=== PATIENT | male | born 1935 | race Caucasian/White ===

== ENCOUNTER 2017-12-23 14:18 | Emergency (ER) | payer BC ==
[~2017-12-23] VITALS: Ht 172.7 cm; Wt 61.2 kg
[~2017-12-23 14:18] MED LIST: ASPI81TA31 PO; CLOP75TA15 PO; METO5AMP3 PO; [UNRECOGNIZED DRUG - CODE] PO
--- NOTE | 2017-12-23 14:20 | NUR ---
Pt ambulatory to room 1b, c/o chest pressure since last night, family with pt. EKG done and handed to .
[2017-12-23] MEDS ORDERED: ASPIRIN 325 MG TABLET ONE (14:28)
[2017-12-23] MEDS ORDERED: NITROGLYCERIN 0.4 MG/TAB BOTTLE SL ONE ×2 (14:28→14:30)
[2017-12-23] MEDS ORDERED: ASPIRIN 325 MG TABLET PO ONE (14:30)
[2017-12-23] MEDS ORDERED: NITROGLYCERIN IV 250 ML ONE (14:40)
[2017-12-23] MEDS ORDERED: NITROGLYCERIN IV 250 ML IV PRN (14:45)
[2017-12-23 14:46] LABS: BASOPHILS # (AUTO) 0.1 K/uL (0.0-8.0); BASOPHILS % (AUTO) 0.4 % (0.0-2.0); EOSINOPHILS % (AUTO) 0.1 % (0.0-7.0); HEMATOCRIT 49.5 % (36.7-47.1); HEMOGLOBIN 15.8 g/dL (12.5-16.3); LYMPHOCYTES # (AUTO) 1.1 K/uL (20.0-40.0); LYMPHOCYTES % (AUTO) 7.1 % (20.5-51.5); MEAN CORPUSCULAR HEMOGLOBIN 24.6 uug (23.8-33.4); MEAN CORPUSCULAR HGB CONC 32 g/dL (32.5-36.3); MEAN CORPUSCULAR VOLUME 77.3 fL (73.0-96.2); MONOCYTES # (AUTO) 0.7 K/uL (2.0-10.0); MONOCYTES % (AUTO) 4.6 % (0.0-11.0); NEUTROPHILS # (AUTO) 13.5 K/uL (1.8-8.9); NEUTROPHILS % (AUTO) 87.8 % (38.5-71.5); PLATELET COUNT (AUTO) 222 K/uL (152-348); RED BLOOD CELL COUNT(AUTO) 6.41 MIL/uL (4.06-5.63); WHITE BLOOD COUNT (AUTO) 15.4 K/uL (3.6-10.2)
--- NOTE | 2017-12-23 14:50 | NUR ---
spoke with Dr.George Urban (pt's director of healthcare systems) via telephone.
[2017-12-23 14:51] LABS: CARBON DIOXIDE 27 mmol/L (21-32); CHLORIDE 102 mmol/L (98-107); CREATININE 1.5 mg/dL (0.6-1.3); GLUCOSE 148 mg/dL (74-106); POTASSIUM 4.6 mmol/L (3.5-5.1); UREA NITROGEN, BLOOD 26 mg/dL (7-18)
[2017-12-23] MEDS ORDERED: QUET25TA PO (14:55)
[2017-12-23] MEDS ORDERED: DONE10TA44 PO (14:55)
[2017-12-23] MEDS ORDERED: HYDR-4075 PO (14:55)
[2017-12-23] MEDS ORDERED: CLON0.1T PO (14:55)
--- NOTE | 2017-12-23 14:59 | NUR ---
Pt states chest pressure/pain 8/10, Nitroglycerin drip increased to 15mcg/min.
--- NOTE | 2017-12-23 15:00 | NUR ---
FYI: Pt's poured pipe maker is Dr.George Urban Office: [phone]
[2017-12-23] MEDS ORDERED: HEPARIN SODIUM,PORCINE/PF 50 UNIT/5 ML SYR IV ONE (15:15)
--- NOTE | 2017-12-23 15:15 | NUR ---
Requested information faxed to [facility] [phone].
[2017-12-23] MEDS ORDERED: HEPARIN SODIUM,PORCINE 5,000 UNITS/ML VIAL ONE (15:24)
[2017-12-23] MEDS ORDERED: CLOPIDOGREL 75 MG TABLET ONE (15:29)
[2017-12-23] MEDS ORDERED: CLOPIDOGREL 75 MG TABLET PO ONE (15:30)
--- NOTE | 2017-12-23 15:30 | NUR ---
Called [facility] for follow up, CHRISTIEN stated she is working on the case and will call back.
--- NOTE | 2017-12-23 15:32 | NUR ---
Pt states his pain is still 7/10, Nitroglycerin drip increased to 20mcg/min.
--- NOTE | 2017-12-23 15:39 | NUR ---
Esteban KING at [facility] pt has been accepted, pt will go to room 519A, Dr.Pavel Gonzales accepting, .
--- NOTE | 2017-12-23 15:40 | NUR ---
Haile pink in [facility] - 12/23/17 at 1543 by REJI 911 called for transport per request.
--- NOTE | 2017-12-23 15:43 | NUR ---
[facility] called for ALS transport per request, ETA 1800.
--- NOTE | 2017-12-23 15:45 | NUR ---
Pt states pain is 6/10, Nitroglycerin drip increased to 25mcg/min per Dr.Lai pizarro.
--- NOTE | 2017-12-23 16:00 | NUR ---
Nitroglycerin drip increased to 35mcg/min per Dr.Lai pizarro.
--- NOTE | 2017-12-23 16:05 | NUR ---
Called [facility] for ETA for ALS transport, dispatcher stated approx 2hrs at this time.
--- NOTE | 2017-12-23 16:08 | NUR ---
Called [facility] for ETA for ALS transport, no ALS transport available at this time per dispatcher.
[2017-12-23] MEDS ORDERED: HEPARIN/D5W DRIP 500 ML IV PRN (16:15)
--- NOTE | 2017-12-23 16:15 | NUR ---
spoke with via telephone. states pt will go to [facility] now. CHRISTINE in [place] transfer notified. CHRISTINE stated she will call back.
--- NOTE | 2017-12-23 16:26 | NUR ---
Received call from CHRISTINE who stated pt may be trans to [facility]
--- NOTE | 2017-12-23 16:27 | NUR ---
911 called for transport per request.
[2017-12-23] MEDS ORDERED: FUROSEMIDE 40 MG/4 ML VIAL ONE (16:29)
[2017-12-23] MEDS ORDERED: FUROSEMIDE 20 MG/2 ML VIAL IV ONE (16:30)
[2017-12-23] MEDS ORDERED: NITROGLYCERIN OINT 1 GM PACKET TP ONE ×2 (16:35→16:45)
[2017-12-23] MEDS ORDERED: MORPHINE SULFATE 4 MG/1 ML DISP.SYRIN ONE (16:35)
--- NOTE | 2017-12-23 16:36 | NUR ---
Pt transfered to [facility] via [id number].
[2017-12-23 16:37] VITALS: BP 133/80
[2017-12-23] MEDS ORDERED: MORPHINE SULFATE 4 MG/1 ML DISP.SYRIN IV ONE (16:45)
== END 2017-12-23 16:45 | disposition short-term general hospital (02) ==
LOC: ER 14:18
DX: I24.9 Acute ischemic heart disease, unspecified (principal); I48.91 Unspecified atrial fibrillation; I21.4 Non-ST elevation (NSTEMI) myocardial infarction; I11.0 Hypertensive heart disease with heart failure; I50.9 Heart failure, unspecified; F17.200 Nicotine dependence, unspecified, uncomplicated; Z86.73 Personal history of transient ischemic attack (TIA), and cerebral infarction without residual deficits
CPT/HCPCS: 36415; 71045; 80048; 84484; 85025; 85730; 93005 ×5; 96365; 96366; 96374; 96375; 99291; J1644; J1940; J2270; J3490; 70030-TC; A4663; J1642; J7030